=== PATIENT | male | born 1995 | race Caucasian/White ===

== ENCOUNTER 2017-07-08 09:15 | Emergency (ER) | payer OTHER ==
[2017-07-08 09:24] VITALS: RESP 16; TEMP 98.2
--- NOTE | 2017-07-08 09:51 | EDPHY ---
H & P Time Seen by Provider: 07/08/17 09:34 HPI/ROS: CHIEF COMPLAINT: Left knee injury HISTORY OF PRESENT ILLNESS: 22-year-old male presents to the emergency department by private vehicle with injury to his left knee. The patient was playing touch football and his left foot stepped into a hole and he twisted his left knee. He has pain to the medial aspect of his left knee. The patient has had a previous medial collateral ligament injury. He did not hit his head or lose consciousness. Denies neck or back pain. Denies pain in his left ankle or left hip. ROS: Denies numbness or tingling in his toes, pain in his left ankle or hip. Denies symptoms in the right lower extremity or in his upper extremities bilaterally. Past Medical/Surgical History: Previous left medial collateral ligament injury 3 years ago Social History: Single. From [place]. Smoking Status: Never smoked Physical Exam: On examination the patient has mild swelling to the medial aspect of his left knee. He has reproducible pain with palpation to the medial aspect of the proximal left tibia. He also has some mild pain with palpation in the medial joint line. No palpable crepitus or other bony abnormality. The patient has pain with valgus stress of the knee consistent with medial collateral ligament injury. He has full extension. He is able to flex to about 90 degrees before he is limited by pain. No obvious effusion. ACL and PCL appear intact. Full range of motion of his left ankle. No redness, warmth or abrasions or signs of infection. Constitutional: Initial Vital Signs Temperature (C) 36.8 C 07/08/17 09:21 Heart Rate 56 L 07/08/17 09:21 Respiratory Rate 16 07/08/17 09:21 Blood Pressure 118/71 07/08/17 09:21 O2 Sat (%) 95 07/08/17 09:21 O2 Delivery Mode Room Air Allergies/Adverse Reactions: ceftin Allergy (Uncoded 07/08/17 09:26) MDM/Departure - MDM Diagnostics: X-rays of the left knee reveal no fractures. Reviewed by myself the PAC system. Imaging Results: Imaging Impressions Knee X-Ray 07/08/17 09:46 Impression: Negative left knee radiographs. Imaging: I viewed and interpreted images myself Procedures: Patient was placed in straight leg knee immobilizer and examined post application in good placement with normal [employer]. ED Course/Re-evaluation: 22-year-old male presents to the emergency department with left knee injury. X- rays reveal no fractures. He was placed in straight leg knee immobilizer and given orthopedic referral. He likely has medial meniscus injury. This was explained to the patient. He will follow up with his orthopedic physician in [place] to recheck this week. - Depart Disposition: Home, Routine, Self-Care Clinical Impression: Knee sprain Qualifiers: Encounter type: initial encounter Involved ligament of knee: medial collateral ligament Laterality: left Qualified Code(s): S83.412A - Sprain of medial collateral ligament of left knee, initial encounter Condition: Good Instructions: Knee Sprain (ED), Knee Immobilizer (ED) Additional Instructions: Knee immobilizer for comfort and support. Weightbear as tolerated or use crutches. Ibuprofen 600 mg every 8 hours as needed for pain. Follow up with orthopedic surgeon in 1 week to recheck. No signs of avulsion fracture on your knee x-ray. Referrals: Patsy Medley MD [Medical Doctor] - 5-7 days, call for appt. (Orthopedic surgeon on-call)
[2017-07-08 10:32] VITALS: BP 148/70; PULSE 68; O2SAT 94
== END 2017-07-08 10:31 | disposition home or self-care (01) ==
DX: S83.412A Sprain of medial collateral ligament of left knee, initial encounter (principal); W18.42XA Slipping, tripping and stumbling without falling due to stepping into hole or opening, initial encounter; Y93.61 Activity, american tackle football
CPT/HCPCS: L1830